=== PATIENT | female | born 1935 | race Caucasian/White ===

== ENCOUNTER 2018-12-29 19:39 | Observation (INO) | payer MEDICARE, OTHER ==
[2018-12-29] MEDS ORDERED: Nitrostat 0.4 MG (ED) SL ONE ×2 (19:56→20:09)
[2018-12-29] MEDS ORDERED: BABY ASPIRIN 81 MG CHEW PO ONE (19:56)
--- NOTE | 2018-12-29 19:56 | ERPHSYRPT ---
- History of Present Illness Time Seen by Provider: 12/29/18 19:54 Historian: patient, family Exam Limitations: no limitations Timing/Duration: today Quality: dullness, fullness Location: epigastric Severity of Pain-Max: moderate Severity of Pain-Current: moderate Associated Symptoms: nausea, shortness of breath Prior Chest Pain/Cardiac Workup: cardiac cath Nitro Today/Relief: provided by ED Aspirin Treatment Today: 81 mg x 4, provided by ED Allergies/Adverse Reactions: No Known Drug Allergies Allergy (Unverified 12/29/18 19:47) - Review of Systems Constitutional: No Fever, No Chills Eyes: No Symptoms Ears, Nose, & Throat: No Symptoms Respiratory: Dyspnea, No Cough Cardiac: Chest Pain, No Edema, No Syncope Abdominal/Gastrointestinal: Nausea, No Abdominal Pain, No Vomiting, No Diarrhea Genitourinary Symptoms: No Dysuria Musculoskeletal: No Back Pain, No Neck Pain Skin: No Rash Neurological: No Dizziness, No Focal Weakness, No Sensory Changes Psychological: No Symptoms Endocrine: No Symptoms Hematologic/Lymphatic: No Symptoms Immunological/Allergic: No Symptoms All Other Systems: Reviewed and Negative - Past Medical History Pertinent Past Medical History: Yes Cardiac History: Coronary Artery Disease - Nursing Vital Signs Nursing Vital Signs: Initial Vital Signs Pulse Rate 106 H 12/29/18 20:00 Respiratory Rate 18 12/29/18 20:00 Blood Pressure 169/106 12/29/18 20:00 O2 Sat by Pulse Oximetry 93 L 12/29/18 20:00 Pain Scale Pain Intensity 0 - Physical Exam General Appearance: no apparent distress, alert Eye Exam: PERRL/EOMI, eyes nml inspection Ears, Nose, Throat Exam: normal ENT inspection, moist mucous membranes Neck Exam: normal inspection, non-tender, supple, full range of motion Respiratory Exam: normal breath sounds, lungs clear, No respiratory distress Cardiovascular Exam: regular rate/rhythm, normal heart sounds Gastrointestinal/Abdomen Exam: soft, No tenderness, No mass Rectal Exam: deferred Back Exam: normal inspection, No CVA tenderness, No vertebral tenderness Extremity Exam: normal inspection, normal range of motion Neurologic Exam: alert, oriented x 3, cooperative, normal mood/affect, sensation nml, No motor deficits Skin Exam: normal color, warm, dry - Course Nursing assessment & vital signs reviewed: Yes EKG Interpreted by Me: Sinus Tach, Right Chapin Deviation, Right Bundle Branch Block, Non-specific ST Changes - CT Exams Chest CT Interpretation: Tele-radiologist Report, No PE Ordered Tests: Active Orders 24 hr Category Date Time Status Healthcare Technician STAT Care 12/29/18 19:58 Active EKG-ER Only STAT Care 12/29/18 19:56 Active IV Insertion STAT Care 12/29/18 19:56 Active Oxygen-ED Only Nasal Cannula 2 lpm Care 12/29/18 20:21 Active Pulse Oximetry (ED) STAT Care 12/29/18 19:56 Active CHEST 1 VIEW (PORTABLE) Stat Exams 12/29/18 19:57 Taken CHEST WITH CONTRAST [CT] Stat Exams 12/29/18 21:14 Taken AMYLASE Stat Lab 12/29/18 20:37 Completed CBC W DIFF Stat Lab 12/29/18 20:37 Completed CMP Stat Lab 12/29/18 20:37 Completed D-DIMER QUANTITATION Stat Lab 12/29/18 20:37 Completed LIPASE Stat Lab 12/29/18 20:37 Completed Lactic Acid Stat Lab 12/29/18 20:34 Completed Lactic Acid Stat Lab 12/29/18 23:10 Completed NT PRO BNP Stat Lab 12/29/18 20:37 Completed TROPONIN Q3H Lab 12/29/18 20:37 Completed TROPONIN Q3H Lab 12/29/18 23:00 Ordered TROPONIN Q3H Lab 12/30/18 02:00 Ordered TROPONIN Q3H Lab 12/30/18 05:00 Ordered TROPONIN Q3H Lab 12/30/18 08:00 Ordered UA W/RFX UR CULTURE Stat Lab 12/29/18 21:02 Completed Medication Summary Generic Name Dose Route Start Last Admin Trade Name Freq PRN Reason Stop Dose Admin Sodium Chloride 1,000 mls @ 50 mls/hr 12/29/18 20:00 12/29/18 20:14 Sodium Chloride 0.9% 1000 Ml IV 01/28/19 19:59 50 mls/hr .Q20H MAO Administration Discontinued Medications Generic Name Dose Route Start Last Admin Trade Name Freq PRN Reason Stop Dose Admin Aspirin 324 mg 12/29/18 19:56 12/29/18 20:14 Baby Aspirin 81 Mg Chew PO 12/29/18 19:57 324 mg STAT ONE Administration Aspirin Confirm 12/29/18 20:09 Baby Aspirin 81 Mg Chew Administered 12/29/18 20:10 Dose 324 mg .ROUTE .STK-MED ONE Nitroglycerin 0.4 mg 12/29/18 19:56 12/29/18 20:14 Nitrostat 0.4 Mg (Ed) SL 12/29/18 19:57 0.4 mg STAT ONE Administration Nitroglycerin Confirm 12/29/18 20:09 Nitrostat 0.4 Mg (Ed) Administered 12/29/18 20:10 Dose 0.4 mg SL .STK-MED ONE Lab/Rad Data: Laboratory Result Diagrams 12/29/18 20:37 12/29/18 20:37 Laboratory Results 12/29/18 12/29/18 12/29/18 Range/Units 23:10 21:02 20:37 WBC (4.0-10.5) K/mm3 RBC (4.1-5.4) M/mm3 Hgb (12.0-16.0) gm/dl Hct (35-47) % MCV (78-100) fl MCH (26-32) pg MCHC (32-36) g/dl RDW (11.5-14.0) % Plt Count (150-450) K/mm3 MPV (6-9.5) fl Gran % (36.0-66.0) % Eos # (Auto) (0-0.5) Absolute Lymphs (auto) (1.0-4.6) Absolute Monos (auto) (0.0-1.3) Lymphocytes % (24.0-44.0) % Monocytes % (0.0-12.0) % Eosinophils % (0.00-5.0) % Basophils % (0.0-0.4) % Absolute Granulocytes (1.4-6.9) Basophils # (0-0.4) D-Dimer (215-500) ng/mL Sodium (137-145) mmol/L Potassium (3.5-5.1) mmol/L Chloride (98-107) mmol/L Carbon Dioxide (22-30) mmol/L Anion Gap (5-15) MEQ/L BUN (7-17) mg/dL Creatinine (0.52-1.04) mg/dL Estimated GFR ML/MIN Glucose (74-106) mg/dL Lactic Acid 1.6 (0.4-2.0) Calcium (8.4-10.2) mg/dL Total Bilirubin (0.2-1.3) mg/dL AST (14-36) U/L ALT (0-35) U/L Alkaline Phosphatase (38-126) U/L Troponin I < 0.012 (0.000-0.034) ng/mL NT-Pro-B Natriuret Pep (0-1800) pg/mL Serum Total Protein (6.3-8.2) g/dL Albumin (3.5-5.0) g/dL Amylase (30-110) U/L Lipase (23-300) U/L Urine Color YELLOW (YELLOW) Urine Appearance CLEAR (CLEAR) Urine pH 6.0 (5-6) Ur Specific [place] 1.012 (1.005-1.025) Urine Protein NEGATIVE (Negative) Urine Ketones SMALL (NEGATIVE) Urine Blood NEGATIVE (0-5) Matthew/ul Urine Nitrite NEGATIVE (NEGATIVE) Urine Bilirubin NEGATIVE (NEGATIVE) Urine Urobilinogen 2 (0-1) mg/dL Ur Leukocyte Esterase NEGATIVE (NEGATIVE) Urine WBC (Auto) NONE (0-5) /HPF Urine RBC (Auto) NONE (0-2) /HPF U Epithel Cells (Auto) NONE (FEW) /HPF Urine Bacteria (Auto) NONE (NEGATIVE) /HPF Urine Culture Reflexed NO (NO) Urine Glucose >=500 (NEGATIVE) mg/dL 12/29/18 12/29/18 12/29/18 Range/Units 20:37 20:37 20:37 WBC 10.7 H (4.0-10.5) K/mm3 RBC 5.26 (4.1-5.4) M/mm3 Hgb 16.6 H (12.0-16.0) gm/dl Hct 51.3 H (35-47) % MCV 97.5 (78-100) fl MCH 31.5 (26-32) pg MCHC 32.4 (32-36) g/dl RDW 18.1 H (11.5-14.0) % Plt Count 210 (150-450) K/mm3 MPV 10.7 H (6-9.5) fl Gran % 84.8 H (36.0-66.0) % Eos # (Auto) 0 (0-0.5) Absolute Lymphs (auto) 0.98 L (1.0-4.6) Absolute Monos (auto) 0.63 (0.0-1.3) Lymphocytes % 9.1 L (24.0-44.0) % Monocytes % 5.9 (0.0-12.0) % Eosinophils % 0.0 (0.00-5.0) % Basophils % 0.2 (0.0-0.4) % Absolute Granulocytes 9.10 H (1.4-6.9) Basophils # 0.02 (0-0.4) D-Dimer 889 H* (215-500) ng/mL Sodium 140 (137-145) mmol/L Potassium 4.1 (3.5-5.1) mmol/L Chloride 101 (98-107) mmol/L Carbon Dioxide 30 (22-30) mmol/L Anion Gap 14.3 (5-15) MEQ/L BUN 18 H (7-17) mg/dL Creatinine 0.79 (0.52-1.04) mg/dL Estimated GFR > 60.0 ML/MIN Glucose 257 H (74-106) mg/dL Lactic Acid (0.4-2.0) Calcium 9.6 (8.4-10.2) mg/dL Total Bilirubin 3.60 H (0.2-1.3) mg/dL AST 865 H (14-36) U/L ALT 644 H (0-35) U/L Alkaline Phosphatase 155 H (38-126) U/L Troponin I (0.000-0.034) ng/mL NT-Pro-B Natriuret Pep 176 (0-1800) pg/mL Serum Total Protein 7.5 (6.3-8.2) g/dL Albumin 4.2 (3.5-5.0) g/dL Amylase 748 H (30-110) U/L Lipase 27139 H (23-300) U/L Urine Color (YELLOW) Urine Appearance (CLEAR) Urine pH (5-6) Ur Specific [place] (1.005-1.025) Urine Protein (Negative) Urine Ketones (NEGATIVE) Urine Blood (0-5) Matthew/ul Urine Nitrite (NEGATIVE) Urine Bilirubin (NEGATIVE) Urine Urobilinogen (0-1) mg/dL Ur Leukocyte Esterase (NEGATIVE) Urine WBC (Auto) (0-5) /HPF Urine RBC (Auto) (0-2) /HPF U Epithel Cells (Auto) (FEW) /HPF Urine Bacteria (Auto) (NEGATIVE) /HPF Urine Culture Reflexed (NO) Urine Glucose (NEGATIVE) mg/dL 12/29/18 Range/Units 20:34 WBC (4.0-10.5) K/mm3 RBC (4.1-5.4) M/mm3 Hgb (12.0-16.0) gm/dl Hct (35-47) % MCV (78-100) fl MCH (26-32) pg MCHC (32-36) g/dl RDW (11.5-14.0) % Plt Count (150-450) K/mm3 MPV (6-9.5) fl Gran % (36.0-66.0) % Eos # (Auto) (0-0.5) Absolute Lymphs (auto) (1.0-4.6) Absolute Monos (auto) (0.0-1.3) Lymphocytes % (24.0-44.0) % Monocytes % (0.0-12.0) % Eosinophils % (0.00-5.0) % Basophils % (0.0-0.4) % Absolute Granulocytes (1.4-6.9) Basophils # (0-0.4) D-Dimer (215-500) ng/mL Sodium (137-145) mmol/L Potassium (3.5-5.1) mmol/L Chloride (98-107) mmol/L Carbon Dioxide (22-30) mmol/L Anion Gap (5-15) MEQ/L BUN (7-17) mg/dL Creatinine (0.52-1.04) mg/dL Estimated GFR ML/MIN Glucose (74-106) mg/dL Lactic Acid 2.1 H (0.4-2.0) Calcium (8.4-10.2) mg/dL Total Bilirubin (0.2-1.3) mg/dL AST (14-36) U/L ALT (0-35) U/L Alkaline Phosphatase (38-126) U/L Troponin I (0.000-0.034) ng/mL NT-Pro-B Natriuret Pep (0-1800) pg/mL Serum Total Protein (6.3-8.2) g/dL Albumin (3.5-5.0) g/dL Amylase (30-110) U/L Lipase (23-300) U/L Urine Color (YELLOW) Urine Appearance (CLEAR) Urine pH (5-6) Ur Specific [place] (1.005-1.025) Urine Protein (Negative) Urine Ketones (NEGATIVE) Urine Blood (0-5) Matthew/ul Urine Nitrite (NEGATIVE) Urine Bilirubin (NEGATIVE) Urine Urobilinogen (0-1) mg/dL Ur Leukocyte Esterase (NEGATIVE) Urine WBC (Auto) (0-5) /HPF Urine RBC (Auto) (0-2) /HPF U Epithel Cells (Auto) (FEW) /HPF Urine Bacteria (Auto) (NEGATIVE) /HPF Urine Culture Reflexed (NO) Urine Glucose (NEGATIVE) mg/dL - Progress Progress: improved, re-examined Air Movement: good Progress Note: 12/29/18 23:[address] Avalos , pt and family and all agree best to place the pt on observation to rule out cardiac , and begin tx of incidental hiatal hernia Blood Culture(s) Obtained: No Antibiotics given: No Discussed with : Adenike Will see patient in: hospital (observation) Counseled pt/family regarding: lab results, diagnosis, need for follow-up, rad results - Departure Departure Disposition: Observation Clinical Impression: chest pain; GERD HH Condition: Good Critical Care Time: No
[2018-12-29] MEDS ORDERED: Sodium Chloride 0.9% 1000 ML 1,000 ML IV SCH (20:00)
[2018-12-29] MEDS ORDERED: BABY ASPIRIN 81 MG CHEW ONE (20:09)
[2018-12-29 20:41] LABS: BASOPHIL % 0.2 % (0.0-0.4); Basophil (Absolute #) 0.02 (0-0.4); Eosinophil (Absolute #) 0 (0-0.5); Granulocytes % 84.8 % (36.0-66.0); Hematocrit 51.3 % (35-47); Hemoglobin 16.6 gm/dl (12.0-16.0); Lymphocyte (Absolute #) 0.98 (1.0-4.6); Lymphocytes % 9.1 % (24.0-44.0); Mean Cell Volume 97.5 fl (78-100); Mean Corpuscular Hgb Concent. 32.4 g/dl (32-36); Mean Platelet Volume 10.7 fl (6-9.5); Monocyte (Absolute #) 0.63 (0.0-1.3); Monocytes % 5.9 % (0.0-12.0); Platelet Count 210 K/mm3 (150-450); Red Blood Count 5.26 M/mm3 (4.1-5.4); Red Cell Distribution Width 18.1 % (11.5-14.0); White Blood Count 10.7 K/mm3 (4.0-10.5)
[2018-12-29 20:42] LABS: Mean Corpuscular Hemoglobin 31.5 pg (26-32)
[2018-12-29 20:44] LABS: Lactic Acid 2.1 (0.4-2.0)
[2018-12-29 20:56] LABS: ALBUMIN 4.2 g/dL (3.5-5.0); ALKALINE PHOSPHATASE 155 U/L (38-126); AMYLASE 748 U/L (30-110); ANION GAP 14.3 MEQ/L (5-15); BLOOD UREA NITROGEN 18 mg/dL (7-17); CHLORIDE 101 mmol/L (98-107); Calcium 9.6 mg/dL (8.4-10.2); Carbon Dioxide 30 mmol/L (22-30); Creatinine 1 0.79 mg/dL (0.52-1.04); Glucose 257 mg/dL (74-106); NT PRO BNP 176 pg/mL (0-1800); Potassium 4.1 mmol/L (3.5-5.1); SGPT/ALT 644 U/L (0-35); SODIUM 140 mmol/L (137-145); Total Protein 7.5 g/dL (6.3-8.2)
[2018-12-29 21:22] LABS: LIPASE 16311 U/L (23-300); SGOT/AST 865 U/L (14-36)
[2018-12-29 21:26] LABS: Appearance CLEAR (CLEAR); Bilirubin NEGATIVE (NEGATIVE); Blood NEGATIVE Ery/ul (0-5); Glucose >=500 mg/dL (NEGATIVE); Ketones SMALL (NEGATIVE); Leukocyte Esterase NEGATIVE (NEGATIVE); Nitrite NEGATIVE (NEGATIVE); Protein,Urine Dip NEGATIVE (Negative); Specific Gravity 1.012 (1.005-1.025); Urobilinogen 2 mg/dL (0-1)
[2018-12-30] MEDS ORDERED: MAALOX ES 30 ML UNIT DOSE PO PRN (00:31)
[2018-12-30] MEDS ORDERED: Zofran 4 MG/2 ML VIAL IV PRN (00:31)
[2018-12-30] MEDS ORDERED: MORPHINE SULFATE 2 MG INJ IV PRN (00:31)
[2018-12-30] MEDS ORDERED: Senokot-S Tablet PO PRN (00:31)
[2018-12-30] MEDS ORDERED: PROTONIX 40 MG IV IV SCH ×2 (00:31→22:00)
[2018-12-30] MEDS ORDERED: TYLENOL 325 MG PO PRN (00:31)
[2018-12-30] MEDS ORDERED: MILK OF MAGNESIA 30 ML PO PRN (00:31)
[2018-12-30] MEDS ORDERED: NovoLIN R SQ PRN (00:31)
[2018-12-30] MEDS ORDERED: Nitrostat 0.4 MG Tablet SL PRN (00:40)
[2018-12-30 05:48] LABS: Risk Ratio 3.5
--- NOTE | 2018-12-30 08:22 | XRAY ---
Indication: Pain and nausea. Comparison: None Portable chest is clear with incidental overlying monitoring leads. Heart and mediastinal structures within normal limits for portable technique. Bony thorax intact with mild degenerative changes. Impression: Nonacute chest.
--- NOTE | 2018-12-30 08:22 | XRAY ---
Indication: Pain. Elevated d-dimer. Multiple contiguous axial images obtained through the chest using 100 cc Isovue 370 contrast and PE protocol. Comparison: None There is good opacification of the pulmonary arteries. Mild respiration artifact limits evaluation of the more distal lobar and segmental branches. No filling defect or pulmonary embolus. Heart is not enlarged. Aorta is mildly arteriosclerotic without aneurysm/dissection. No pathologic mediastinal/hilar lymphadenopathy. Small hiatal hernia. Lungs demonstrates mild bilateral dependent atelectasis. Also minimal right middle lobe and lingula fibrosis/scarring. No suspicious pulmonary mass, infiltrate, or effusion. Bony thorax intact. Limited upper abdomen demonstrates fatty liver, chronic pancreatitis calcifications, left renal cortical scarring, 1 cm left renal calculus, and cholecystectomy clips. Impression: 1. Pulmonary embolus evaluation limited by respiration artifact. No obvious pulmonary embolus. 2. Scattered atelectasis/scarring. No acute cardiopulmonary abnormalities. 3. Incidental hiatal hernia, fatty liver, chronic pancreatitis calcifications, left renal scarring, and left renal calculus. Comment: Preliminary interpretation was made by [facility]. No critical discrepancy. CTDI 23.27
[2018-12-30] MEDS ORDERED: Pepcid 20 MG VIAL IV SCH (10:00)
[2018-12-30] MEDS ORDERED: PLAVIX 75 MG Tablet PO SCH (10:00)
[2018-12-30] MEDS ORDERED: Ecotrin 325 MG PO SCH (10:00)
[2018-12-30 10:56] LABS: BASOPHIL % 0.2 % (0.0-0.4); Basophil (Absolute #) 0.02 (0-0.4); Eosinophil % 0.6 % (0.00-5.0); Eosinophil (Absolute #) 0.05 (0-0.5); Granulocyte Absolute (ANC) 6.63 (1.4-6.9); Granulocytes % 76.1 % (36.0-66.0); Hematocrit 47.9 % (35-47); Hemoglobin 15.4 gm/dl (12.0-16.0); Lymphocyte (Absolute #) 1.38 (1.0-4.6); Lymphocytes % 15.8 % (24.0-44.0); Mean Cell Volume 98.4 fl (78-100); Mean Corpuscular Hemoglobin 31.6 pg (26-32); Mean Corpuscular Hgb Concent. 32.2 g/dl (32-36); Mean Platelet Volume 10.4 fl (6-9.5); Monocyte (Absolute #) 0.64 (0.0-1.3); Monocytes % 7.3 % (0.0-12.0); Platelet Count 195 K/mm3 (150-450); Red Blood Count 4.87 M/mm3 (4.1-5.4); Red Cell Distribution Width 18.5 % (11.5-14.0); White Blood Count 8.7 K/mm3 (4.0-10.5)
[2018-12-30 11:07] LABS: ALBUMIN 3.6 g/dL (3.5-5.0); ALKALINE PHOSPHATASE 133 U/L (38-126); AMYLASE 172 U/L (30-110); ANION GAP 11.7 MEQ/L (5-15); BLOOD UREA NITROGEN 14 mg/dL (7-17); CHLORIDE 102 mmol/L (98-107); Calcium 8.5 mg/dL (8.4-10.2); Carbon Dioxide 28 mmol/L (22-30); Creatinine 1 0.55 mg/dL (0.52-1.04); Glucose 234 mg/dL (74-106); LIPASE 571 U/L (23-300); Potassium 3.8 mmol/L (3.5-5.1); SGOT/AST 428 U/L (14-36); SGPT/ALT 501 U/L (0-35); SODIUM 138 mmol/L (137-145); Total Protein 6.7 g/dL (6.3-8.2)
[2018-12-30] MEDS ORDERED: LASIX 20 MG PO PRN (11:18)
[2018-12-30] MEDS ORDERED: MEDICATION INTERVENTION PO SCH (11:30)
[2018-12-30] MEDS ORDERED: SYNTHROID 75 MCG PO SCH (12:00)
[2018-12-30] MEDS ORDERED: SYNTHROID 100 MCG PO SCH (12:00)
[2018-12-30] MEDS ORDERED: Toprol-Xl 25MG Tablets PO SCH (12:00)
[2018-12-30] MEDS ORDERED: Lexapro 10 MG PO SCH (12:00)
[2018-12-30] MEDS ORDERED: hydroDIURIL 25 MG PO SCH (12:00)
[2018-12-30 12:20] VITALS: BP 112/58; PULSE 98; O2SAT 92
--- NOTE | 2018-12-30 12:39 | PCM.DCORD ---
- Discharge Discharge Date: 12/30/18 Disposition: Home, Self-Care Condition: Good Prescriptions: Continue Clopidogrel Bisulfate 75 mg [PLAVIX 75 MG Tablet] 75 mg PO DAILY Levothyroxine Sodium 150 Mcg [Synthroid 150 Mcg] 175 mcg PO DAILY Escitalopram Oxalate 10 mg [Lexapro 10 MG] 10 mg PO DAILY Metoprolol Reeves/Hydrochlorothiaz [Metoprolol ER-Hctz 25-12.5 mg] 1 each PO DAILY Methotrexate Sodium [Methotrexate] 2.5 mg PO WEEKLY Metformin HCl [Metformin ER Gastric] 1,000 mg PO BID Furosemide [Lasix] 20 mg PO DAILY PRN PRN PRN Reason: FLUID Canagliflozin [Invokana] 100 mg PO DAILY Additional Instructions: Please follow up with your primary care provider in [place] this week or next. Call your doctor of go to ER if abdominal pain, vomiting, fever or any concerns. Your group home blood glucose test (Hemoglobin A1C) was high. Please follow up with your doctor about your diabetes. Follow up with: DOCTOR,NO FAMILY [Primary Care Provider] - 1 Week
[2018-12-31] MEDS ORDERED: HYDROCHLOROTHIAZ PO SCH (10:00)
[2018-12-31] MEDS ORDERED: NON-FORMULARY ITEM (Canagliflozin [Invokana] 100 MG) PO SCH (10:00)
[2018-12-31] MEDS ORDERED: [UNRECOGNIZED DRUG - OTHER] PO SCH (10:00)
[2018-12-31] MEDS ORDERED: METOPROLOL SU PO SCH (10:00)
[2018-12-31 21:22] LABS: HEPATITIS A IGM Non Reactive (Non Reactive); HEPATITIS B VIRUS CORE TOT AB Non Reactive (Non Reactive); HEPATITIS C VIRUS ANTIBODY Non Reactive (Non Reactive); Hepatitis B Surface Ab.Quant. <3.50 mIU/mL (0.00-8.49); Hepatitis B Surface Antigen Non Reactive (Non Reactive)
--- NOTE | 2019-01-01 14:43 | SSS ---
ADMISSION DIAGNOSES: 1) Acute pancreatitis. 2) Elevated liver function test. 3) Epigastric pain. 4) History of coronary artery disease. 5) Diabetes mellitus type 2. 6) Rheumatoid arthritis. 7) Hypothyroidism. DISCHARGE DIAGNOSES: 1) ACUTE PANCREATITIS. 2) ELEVATED LIVER FUNCTION TEST. 3) EPIGASTRIC PAIN. 4) HISTORY OF CORONARY ARTERY DISEASE. 5) DIABETES MELLITUS TYPE 2. 6) RHEUMATOID ARTHRITIS. 7) HYPOTHYROIDISM. HISTORY OF PRESENT ILLNESS: This is an 83 year old patient from [place] who presented to the emergency department complaining of epigastric pain. The second time I saw her today her son and [id number] were at the bedside. They reported when she had eaten at [employer] on that had some spice on the steak she started to feel bad, slept most of the day Monday and then yesterday, the day she presented to the emergency department, she started to have abdominal pain. This morning the patient reports the pain is completely gone. It was sharp when she had it and radiated across her abdomen but nowhere else. She reports the pain on Monday started after eating breakfast. She has never had anything like this before. She was able to eat regular food for lunch without any pain. No nausea or vomiting. They would like to go home to follow up with her primary care doctor. REVIEW OF SYSTEMS: She has had no fever. She had nausea before but not now. No vomiting. She had some constipation. No diarrhea. No chest pain. No dyspnea. No diaphoresis. PAST MEDICAL HISTORY: Rheumatoid arthritis. Coronary artery disease with one stent. Venous stasis of her lower extremities. Diabetes mellitus type 2. Hypothyroidism. PAST SURGICAL HISTORY: Cholecystectomy. MEDICATIONS: Please see the home medication reconciliation form. ALLERGIES: NKDA. SOCIAL HISTORY: She reports she lives with her daughter. No alcohol or tobacco use. FAMILY HISTORY: Her mother is and had ovarian cancer. Her father is and had mesothelioma. PHYSICAL EXAMINATION: VITAL SIGNS: Temperature current 97.8F, heart rate 98, respiratory rate 20, blood pressure 112/58, weight 101.1 kg. Oxygen saturation 92% on room air. GENERAL: The patient is a pleasant talkative lady sitting up in her chair in no acute distress. She is alert and cooperative. CVS: She has a regular rate and rhythm. No murmurs, gallops or rubs are appreciated. CHEST: Clear to auscultation bilaterally. No crackles or wheezes. ABDOMEN: Soft, nontender, nondistended with normal bowel sounds. SKIN: Warm, dry and intact. EXTREMITIES: No clubbing, cyanosis or edema. LABORATORY DATA AND TESTS: On admission her lipase was 16,311 and repeat 571. Amylase 748 with repeat 172. AST 865 with repeat of 428. ALT 644 with repeat of 501. Bilirubin 3.6 with repeat of 2.2. Lactic acid 2.1 and repeat 1.6. Glucose 257. Hemoglobin A1C 9.0. D-dimer was 889. Repeat CBC this a.m. was normal. On admission her white blood cell count was 10.7 and hemoglobin 16.6. EKG was sinus rhythm with a heart rate of 93 and right bundle branch block. Chest CT was read as no pulmonary embolism and small hiatal hernia. Please see the radiologist report for the full dictation. Chest x-ray was read as nonacute chest. Please see the radiologist report for the full dictation. ASSESSMENT AND PLAN: 1) ACUTE PANCREATITIS: She was given IV fluids overnight. I rechecked all of her pancreatic enzymes and they were improving. She was tolerating regular diet without any problems. I discussed with the patient possible causes, but she does not have a gallbladder anymore and she does not drink alcohol. We discussed it may be viral in etiology related to her medication. She does report that she has been using CBD oil but I do not know if there is a link between CBD oil and pancreatitis. 2) ELEVATED LIVER FUNCTION TEST: Again these were improving and the patient was feeling well. Hepatitis panel was ordered but the results were not back yet. The patient's family voiced understanding that they will need to follow up with her primary care doctor in [place]. 3) EPIGASTRIC PAIN: She ruled out for acute myocardial infarction with serial negative troponins and no pain at the time of discharge. 4) HISTORY OF CORONARY ARTERY DISEASE: She was continued on her home medications and again ruled out for acute myocardial infarction. 5) DIABETES MELLITUS TYPE 2, UNCONTROLLED. Hemoglobin A1C 9.0. She was continued on her home medications and asked to follow up with her primary care doctor. She was also given a low dose sliding scale of NovoLog. 6) RHEUMATOID ARTHRITIS: Continued on her home medications. 7) HYPOTHYROIDISM: Continued on her home medications. DISPOSITION: The patient was discharged to home in good condition to follow up with her primary care provider this week or early next week. DISCHARGE MEDICATIONS: All the same as her home medications without any changes. Please see the discharge order.
[2019-01-04] MEDS ORDERED: TREXALL 2.5 MG PO SCH (10:00)
== END 2018-12-30 13:10 | disposition home or self-care (01) ==
LOC: ED 19:39 → MED SURG 12-30 00:21
PROVIDERS: ADMIT Internal Medicine; ATTEND Internal Medicine
DX: K85.90 Acute pancreatitis without necrosis or infection, unspecified (principal); R94.5 Abnormal results of liver function studies; R10.13 Epigastric pain; E11.9 Type 2 diabetes mellitus without complications; M06.9 Rheumatoid arthritis, unspecified; E03.9 Hypothyroidism, unspecified; Z86.79 Personal history of other diseases of the circulatory system
CPT/HCPCS: 36000; 36415; 71045; 71260; 80053; 80061; 80074; 81001; 82150; 82962; 83036; 83605; 83690; 83721; 83880; 84484; 85025; 85379; 93005; 93041; 93268; 94760; 96360; 96361; 99285; G0378; A9270-GY